=== PATIENT | male | born 1965 ===

== ENCOUNTER 2020-02-19 14:49 | Inpatient (IN) | payer MEDICARE, MEDICAID ==
[2020-02-19 21:24] VITALS: BP 135/62
[2020-02-19] MEDS ORDERED: Maalox 30 mL Cup PO PRN (21:27)
[2020-02-20] MEDS: Multivitamin Tab PO SCH (08:32)
--- NOTE | 2020-02-20 13:52 | Psychiatric Evaluation ---
DATE OF SERVICE: 02/19/2020 IDENTIFYING DATA: The patient is a 54-year-old male, currently homeless. Information obtained by directly interviewing the patient as well as reviewing the admission papers and they are reliable. JUSTIFICATION OF HOSPITALIZATION: The patient is admitted here on a 5150 as being gravely disabled and danger to others and self. CHIEF COMPLAINT: "I don't know what is happening. I am a minor. I have lots of money" but I don't have a place to stay." HISTORY OF PRESENT ILLNESS: This is the first psychiatric hospitalization to [facility] for this patient who is reported to have been brought over here on a 5150. During the evaluation, the patient has been very grandiose and going on a tangent and is not able to provide much of information. The patient is stating that he is a minor. He has lot of money, but at the same time does not have any place and the patient goes on talking about an home health care social worker and reality business and lawsuits. The patient is not making much sense at this time. The patient is noted to be extremely disheveled and the patient is not giving any information with regards to the prior treatments. PAST PSYCHIATRIC HISTORY: Details are not known. MEDICAL HISTORY: Denies any medical problems. SUBSTANCE ABUSE HISTORY: None. LEGAL PROBLEMS: None at this time. PHYSICAL OR SEXUAL ABUSE HISTORY: None. STRENGTH AND ASSETS: The patient is motivated. MENTAL STATUS EXAMINATION: The patient is a 54-year-old, looking his stated age, superficially cooperative, very disheveled. Speech is noted to be coherent and relevant. Insight and judgment are noted to be impaired. Impulse control is noted to be poor. Continues to be very paranoid and displaying grandiose delusions. The patient is getting easily irritable. The patient is alert and oriented x 3. The patient appears to be of average intelligence. Short and long-term memory are noted to be intact. The patient's behavior is a clear danger to others. The patient is gravely disabled and has no place to return to. DIAGNOSTIC IMPRESSION: AXIS I: Schizophrenia, chronic paranoid type; rule out schizoaffective disorder. AXIS II: None. AXIS III: As per Dr. Ontiveros. IMMEDIATE TREATMENT PLAN: The patient is going to be observed on the inpatient unit, provided with supportive psychotherapy. The patient is going to be closely monitored. Once stabilized, the patient is going to be discharged to self to be followed up on an outpatient basis. Initially, the patient is going to be started on the Zyprexa 5 mg twice a day and if the mood swings persist, the patient is going to be started with the Depakote. JOB# [id number]
[2020-02-20 15:45] LABS: CHOLESTEROL 184 mg/dL (<200); LDL CHOLESTEROL 134 mg/dL (0-129); TRIGLYCERIDES 160 mg/dL (30-150)
--- NOTE | 2020-02-20 15:51 | History & Physical ---
ADMIT DATE: 02/19/2020 CHIEF COMPLAINT: Agitation. HISTORY OF PRESENT ILLNESS: We have a 54-year-old male with schizophrenia, who is brought in for grandiose, tangential thinking. The patient denies any diabetes, heart problems or hypertension. PAST MEDICAL HISTORY: Significant for schizophrenia. PAST SURGICAL HISTORY: None. MEDICATIONS: List reviewed. ALLERGIES: None. SOCIAL HISTORY: Tobacco, IV drugs, ETOH negative. PHYSICAL EXAMINATION: VITAL SIGNS: Temperature is 98.4, pulse 69, respirations 20, blood pressure 125/77, satting 96% on room air. HEENT: Normocephalic, atraumatic head exam. NECK: Supple. CARDIOVASCULAR: Regular rate and rhythm. LUNGS: Decreased breath sounds. ABDOMEN: Soft, nontender. EXTREMITIES: No edema, cyanosis or clubbing. ASSESSMENT AND PLAN: 1. Hypertension. 2. Schizophrenia. The patient will get labs done, CBC, CMP. We will go from there. JOB# [id number]
[2020-02-20 17:01] LABS: WHITE BLOOD COUNT 7.6 K/uL (4.8-10.8)
[2020-02-20 17:02] LABS: BASOPHILS % (AUTO) 1.1 % (0.0-2.0); EOSINOPHILS % (AUTO) 3.4 % (0-4); HEMATOCRIT 43.5 % (36-54); HEMOGLOBIN 13.9 g/dL (14.0-18.0); LYMPHOCYTES % (AUTO) 34.7 % (20.5-51.5); MEAN CORPUSCULAR HEMOGLOBIN 29 pg (27-31); MEAN CORPUSCULAR HGB CONC 32 % (32-36); MEAN CORPUSCULAR VOLUME 90 fL (79.0-98.0); MONOCYTES % (AUTO) 8.8 % (1.7-9.3); PLATELET COUNT 152 K/uL (130-430); RED BLOOD COUNT 4.81 MIL/uL (4.2-6.2); RED CELL DISTRIBUTION WIDTH 14.2 % (9.0-15.0)
[2020-02-20 17:03] LABS: BASOPHILS # (AUTO) 0.1 K/uL (0.0-0.2); EOSINOPHILS # (AUTO) 0.3 K/uL (0.0-0.4); LYMPHOCYTES # (AUTO) 2.7 K/uL (1.0-5.5); MONOCYTES # (AUTO) 0.7 K/uL (0.0-1.0)
[2020-02-21 06:07] LABS: A1C 5.1 % (4.8-5.6)
[2020-02-21] MEDS: Multivitamin Tab PO SCH (08:29)
--- NOTE | 2020-02-21 11:55 | Consultation ---
DATE OF CONSULTATION: 02/21/2020 TYPE OF CONSULTATION: Psychology. HISTORY OF PRESENT ILLNESS: The patient is a 54-year-old male who is currently homeless. The following is by review of the medical record as well as by the patient's self-report. The patient is being admitted on a 5150 as being gravely disabled and a danger to others and self. Upon interview, the patient states that he does not know why he is being hospitalized and that he has lots of money and that he should not be in the hospital because he is a minor. The patient is 54 years old. The patient appears to be going off on a tangent and is unable to provide much information. The patient continued to state that he has a lot of money and that he just is not able to find a place to live. The patient also seemed to be verbalizing grandiose thoughts, i.e., that he is wealthy and in business for himself. The patient was unable to verbally contract for safety at the time of this clinical interview. PAST MEDICAL HISTORY: Please see history and physical by Dr. Ontiveros. PAST PSYCHIATRIC HISTORY: Records are unavailable. Details are unknown. SUBSTANCE ABUSE HISTORY: The patient denied any history of alcohol, tobacco or illicit drug use. This needs further evaluation. BRIEF PSYCHOSOCIAL HISTORY: The patient is currently homeless. The patient did not answer the questions about occupational or educational history that appeared to be realistic. 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 He states that he has multiple lawsuits that he is waiting to come to a conclusion. 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 The patient's thought process became markedly tangential, with grandiose thoughts and flight of ideas. The patient did not answer questions about history of physical or sexual abuse. He did not answer the question about confucianist affiliation. He stated he doesn't want to be placed in a Board and Care or Retirement facility. MENTAL STATUS EXAMINATION: The patient appears to be somewhat older than his stated age. The patient's attitude is superficially cooperative. The patient appears to be disheveled. Eye contact is intermittent and mostly avoidant. Speech is somewhat pressured. Mood is anxious. Affect is animated and mood congruent. Thought process is markedly tangential with flight of ideas. There seems to be some evidence of paranoid ideation and the patient is verbalizing grandiose delusions. The patient denied any suicidal ideation, plan or intention. The patient's behavior has been restless. Impulse control is poor. The patient is irritable at times. Sensorium is alert and oriented to self, place, and person. The patient's short and long-term memories seemed to be intact. The patient's intellectual function seems to be generally estimated at average based on vocabulary. The patient did not participate in the interpretation of proverbs. Insight is poor. Judgment is impaired. The patient has been assessed as gravely disabled with no place to return to. DIAGNOSTIC IMPRESSION: AXIS I: Schizophrenia, chronic paranoid type, rule out schizoaffective disorder. AXIS II: Deferred. AXIS III: Per Dr. Ontiveros. TREATMENT PLAN: The patient has been seen by Dr. Khan for psychiatric evaluation and for the management of the patient's psychotropic medications. We will provide supportive psychotherapy to include reality orientation, differentiation and integration. We will provide suicide prevention interventions as well as offering the opportunity for the patient to verbally contract for safety for no harm to others. We will provide de-escalation as well as limit setting and boundary awareness and definitions. We will provide motivational enhancement for the patient to become compliant and stay compliant with all aspects of his care and treatment. We will provide coping strategies for phase of life issues as well as for chronic severe mental illness. We will encourage the patient to accept placement versus being discharged to self and back to homelessness. This will be discussed with the assistant case manager and the attending psychiatrist. We will follow up in 2-3 days to continue the present treatment if the patient is able to demonstrate the capacity to benefit from psychology services and is also willing to participate in this type of treatment. Thank you, Dr. Khan for this consult and the opportunity to participate with you in this patient's care. JOB# [id number] ONDINA
--- NOTE | 2020-02-21 14:11 | Progress Notes ---
DATE: 02/21/2020 SUBJECTIVE: Staff was spoken to. The patient is interviewed. Mood is noted to be irritable. Affect is constricted. The patient is going on a tangent. Insight and judgment at this time are noted to be still impaired. Impulse control is noted to be limited. Coping skills are noted to be limited. The patient has been placed on the olanzapine 5 mg twice a day and the patient has been able to tolerate. The patient continues to go on a tangent and continues to be extremely psychotic at this time. PLAN: To closely monitor the patient. I encouraged the patient to verbalize the concerns rather than to act out. JOB# [id number]
--- NOTE | 2020-02-21 14:59 | Internal Medicine Prog Note ---
Internal Medicine Subjective - Subjective Service Date: 02/21/20 Patient seen and examined:: without staff Patient is:: awake Patient Complaints of:: congestion Per staff patient has:: no adverse event, no episodes of fall Internal Medicine Objective - Results Result Diagrams: 02/20/20 12:43 Recent Labs: Laboratory Last Values WBC 7.6 K/uL (4.8-10.8) 02/20/20 12:43 RBC 4.81 MIL/uL (4.2-6.2) 02/20/20 12:43 Hgb 13.9 g/dL (14.0-18.0) L 02/20/20 12:43 Hct 43.5 % (36-54) 02/20/20 12:43 MCV 90 fL (79.0-98.0) 02/20/20 12:43 MCH 29 pg (27-31) 02/20/20 12:43 MCHC 32 % (32-36) 02/20/20 12:43 RDW 14.2 % (9.0-15.0) 02/20/20 12:43 Plt Count 152 K/uL (130-430) 02/20/20 12:43 MPV 11.3 fl (7.4-10.4) H 02/20/20 12:43 Neut % (Auto) 52.0 % (40-70) 02/20/20 12:43 Lymph % (Auto) 34.7 % (20.5-51.5) 02/20/20 12:43 [place] % (Auto) 8.8 % (1.7-9.3) 02/20/20 12:43 Eos % (Auto) 3.4 % (0-4) 02/20/20 12:43 Baso % (Auto) 1.1 % (0.0-2.0) 02/20/20 12:43 Neut # (Auto) 4.0 K/uL (1.8-7.7) 02/20/20 12:43 Lymph # (Auto) 2.7 K/uL (1.0-5.5) 02/20/20 12:43 [place] # (Auto) 0.7 K/uL (0.0-1.0) 02/20/20 12:43 Eos # (Auto) 0.3 K/uL (0.0-0.4) 02/20/20 12:43 Baso # (Auto) 0.1 K/uL (0.0-0.2) 02/20/20 12:43 POC Glucose 115 MG/DL (70 - 105) H 02/19/20 20:24 Hemoglobin A1c 5.1 % (4.8-5.6) 02/20/20 12:49 Triglycerides 160 mg/dL (30-150) H 02/20/20 12:43 Cholesterol 184 mg/dL (<200) 02/20/20 12:43 LDL Cholesterol 134 mg/dL (0-129) H 02/20/20 12:43 HDL Cholesterol 37 mg/dL (>45) L 02/20/20 12:43 - Physical Exam Vitals and I&O: Vital Signs Temp 99.0 F 02/21/20 06:22 Pulse 70 02/21/20 06:22 Resp 16 02/21/20 08:00 BP 143/74 02/21/20 06:22 Pulse Ox 98 02/21/20 06:22 Intake & Output 02/20/20 02/21/20 02/21/20 18:59 06:59 18:59 Intake Total 660 Balance 660 Intake: Oral 660 Other: # Voids 2 # Bowel Movements 1 Stool Characteristics Soft Brown Soft Formed Formed Brown Brown Active Medications: Current Medications Acetaminophen (Tylenol) 650 mg PO Q4H PRN PRN Reason: Temperature Above 100 Stop: 04/19/20 21:26 Al Hydrox/Mg Hydrox/Simethicone (Maalox) 30 ml PO Q4HR PRN PRN Reason: GI DISTRESS Stop: 04/19/20 21:26 Chlorpromazine (Thorazine) 50 mg PO HS KOKI; Protocol Stop: 04/21/20 20:59 Diphenhydramine HCl (Benadryl) 25 mg PO QID PRN PRN Reason: Itching Stop: 04/20/20 08:49 Ibuprofen (Motrin) 400 mg PO Q4H PRN PRN Reason: Pain (Mild 1-3) Stop: 04/19/20 21:26 Lorazepam (Ativan) 0.5 mg PO Q4HR PRN; Protocol PRN Reason: Agitation Stop: 03/20/20 21:26 Multivitamins/Vitamin C (Theragran) 1 tab PO DAILY KOKI Stop: 04/20/20 08:59 Last Admin: 02/21/20 08:29 Dose: 1 tab Zolpidem Tartrate (Ambien) 5 mg PO HS PRN PRN Reason: Insomnia Stop: 04/19/20 21:26 General: weak HEENT: NC/AT, PERRLA Neck: Supple Lungs: CTAB Cardiovascular: RRR, Normal S1, Normal S2 Abdomen: soft, non-tender Extremities: clear Internal Medicine Assmt/Plan - Assessment Assessment: 1. HTN 2. Schizophrenia - Plan Plan: continue supportive care d/w r.n. reviewed medical records
[2020-02-22] MEDS: Multivitamin Tab PO SCH (08:17)
--- NOTE | 2020-02-22 14:32 | Internal Medicine Prog Note ---
Internal Medicine Subjective - Subjective Service Date: 02/22/20 Patient seen and examined:: without staff Patient is:: awake Patient Complaints of:: congestion Per staff patient has:: no adverse event, no episodes of fall Internal Medicine Objective - Results Result Diagrams: 02/20/20 12:43 Recent Labs: Laboratory Last Values WBC 7.6 K/uL (4.8-10.8) 02/20/20 12:43 RBC 4.81 MIL/uL (4.2-6.2) 02/20/20 12:43 Hgb 13.9 g/dL (14.0-18.0) L 02/20/20 12:43 Hct 43.5 % (36-54) 02/20/20 12:43 MCV 90 fL (79.0-98.0) 02/20/20 12:43 MCH 29 pg (27-31) 02/20/20 12:43 MCHC 32 % (32-36) 02/20/20 12:43 RDW 14.2 % (9.0-15.0) 02/20/20 12:43 Plt Count 152 K/uL (130-430) 02/20/20 12:43 MPV 11.3 fl (7.4-10.4) H 02/20/20 12:43 Neut % (Auto) 52.0 % (40-70) 02/20/20 12:43 Lymph % (Auto) 34.7 % (20.5-51.5) 02/20/20 12:43 [place] % (Auto) 8.8 % (1.7-9.3) 02/20/20 12:43 Eos % (Auto) 3.4 % (0-4) 02/20/20 12:43 Baso % (Auto) 1.1 % (0.0-2.0) 02/20/20 12:43 Neut # (Auto) 4.0 K/uL (1.8-7.7) 02/20/20 12:43 Lymph # (Auto) 2.7 K/uL (1.0-5.5) 02/20/20 12:43 [place] # (Auto) 0.7 K/uL (0.0-1.0) 02/20/20 12:43 Eos # (Auto) 0.3 K/uL (0.0-0.4) 02/20/20 12:43 Baso # (Auto) 0.1 K/uL (0.0-0.2) 02/20/20 12:43 POC Glucose 115 MG/DL (70 - 105) H 02/19/20 20:24 Hemoglobin A1c 5.1 % (4.8-5.6) 02/20/20 12:49 Triglycerides 160 mg/dL (30-150) H 02/20/20 12:43 Cholesterol 184 mg/dL (<200) 02/20/20 12:43 LDL Cholesterol 134 mg/dL (0-129) H 02/20/20 12:43 HDL Cholesterol 37 mg/dL (>45) L 02/20/20 12:43 - Physical Exam Vitals and I&O: Vital Signs Temp 97.8 F 02/22/20 06:13 Pulse 64 02/22/20 06:13 Resp 16 02/22/20 07:37 BP 141/76 02/22/20 06:13 Pulse Ox 94 02/22/20 06:13 Intake & Output 02/21/20 02/22/20 02/22/20 18:59 06:59 18:59 Intake Total 1000 240 Balance 1000 240 Intake: Oral 1000 240 Other: # Voids 4 2 # Bowel Movements 1 Stool Characteristics Soft Brown Soft Formed Formed Brown Brown Active Medications: Current Medications Acetaminophen (Tylenol) 650 mg PO Q4H PRN PRN Reason: Temperature Above 100 Stop: 04/19/20 21:26 Al Hydrox/Mg Hydrox/Simethicone (Maalox) 30 ml PO Q4HR PRN PRN Reason: GI DISTRESS Stop: 04/19/20 21:26 Chlorpromazine (Thorazine) 50 mg PO HS [facility]; Protocol Stop: 04/21/20 20:59 Last Admin: 02/21/20 21:14 Dose: Not Given Diphenhydramine HCl (Benadryl) 25 mg PO QID PRN PRN Reason: Itching Stop: 04/20/20 08:49 Ibuprofen (Motrin) 400 mg PO Q4H PRN PRN Reason: Pain (Mild 1-3) Stop: 04/19/20 21:26 Lorazepam (Ativan) 0.5 mg PO Q4HR PRN; Protocol PRN Reason: Agitation Stop: 03/20/20 21:26 Multivitamins/Vitamin C (Theragran) 1 tab PO DAILY KOKI Stop: 04/20/20 08:59 Last Admin: 02/22/20 08:17 Dose: 1 tab Zolpidem Tartrate (Ambien) 5 mg PO HS PRN PRN Reason: Insomnia Stop: 04/19/20 21:26 General: weak HEENT: NC/AT, PERRLA Neck: Supple Lungs: CTAB Cardiovascular: RRR, Normal S1, Normal S2 Abdomen: soft, non-tender Extremities: clear Neurological: no change Internal Medicine Assmt/Plan - Assessment Assessment: 1. HTN 2. Schizophrenia - Plan Plan: continue supportive care d/w r.n. reviewed medical records
--- NOTE | 2020-02-22 19:46 | Progress Notes ---
DATE: 02/22/2020 SUBJECTIVE: Staff was spoken to. The patient is interviewed. Mood is noted to be irritable. Affect is constricted. The patient is going on a tangent. The patient is not making much sense. Insight and judgment at this time are noted to be still impaired. The patient is stating that he has a place in [place] and he needs to get there. The patient is grandiose and at the same time psychotic. ASSESSMENT: The patient is still psychotic. PLAN: To continue the patient with supportive therapy. I encouraged the patient to verbalize the concerns rather than to act out. JOB# [id number]
[2020-02-23] MEDS: Multivitamin Tab PO SCH (08:37)
--- NOTE | 2020-02-23 14:49 | Internal Medicine Prog Note ---
Internal Medicine Subjective - Subjective Service Date: 02/23/20 Patient seen and examined:: without staff Patient is:: awake Patient Complaints of:: congestion Per staff patient has:: no adverse event, no episodes of fall Internal Medicine Objective - Results Result Diagrams: 02/20/20 12:43 Recent Labs: Laboratory Last Values WBC 7.6 K/uL (4.8-10.8) 02/20/20 12:43 RBC 4.81 MIL/uL (4.2-6.2) 02/20/20 12:43 Hgb 13.9 g/dL (14.0-18.0) L 02/20/20 12:43 Hct 43.5 % (36-54) 02/20/20 12:43 MCV 90 fL (79.0-98.0) 02/20/20 12:43 MCH 29 pg (27-31) 02/20/20 12:43 MCHC 32 % (32-36) 02/20/20 12:43 RDW 14.2 % (9.0-15.0) 02/20/20 12:43 Plt Count 152 K/uL (130-430) 02/20/20 12:43 MPV 11.3 fl (7.4-10.4) H 02/20/20 12:43 Neut % (Auto) 52.0 % (40-70) 02/20/20 12:43 Lymph % (Auto) 34.7 % (20.5-51.5) 02/20/20 12:43 [place] % (Auto) 8.8 % (1.7-9.3) 02/20/20 12:43 Eos % (Auto) 3.4 % (0-4) 02/20/20 12:43 Baso % (Auto) 1.1 % (0.0-2.0) 02/20/20 12:43 Neut # (Auto) 4.0 K/uL (1.8-7.7) 02/20/20 12:43 Lymph # (Auto) 2.7 K/uL (1.0-5.5) 02/20/20 12:43 [place] # (Auto) 0.7 K/uL (0.0-1.0) 02/20/20 12:43 Eos # (Auto) 0.3 K/uL (0.0-0.4) 02/20/20 12:43 Baso # (Auto) 0.1 K/uL (0.0-0.2) 02/20/20 12:43 POC Glucose 115 MG/DL (70 - 105) H 02/19/20 20:24 Hemoglobin A1c 5.1 % (4.8-5.6) 02/20/20 12:49 Triglycerides 160 mg/dL (30-150) H 02/20/20 12:43 Cholesterol 184 mg/dL (<200) 02/20/20 12:43 LDL Cholesterol 134 mg/dL (0-129) H 02/20/20 12:43 HDL Cholesterol 37 mg/dL (>45) L 02/20/20 12:43 Coronavirus (PCR) NOT DETECTED (NOT DETECTD) 02/20/20 05:00 - Physical Exam Vitals and I&O: Vital Signs Temp 97.9 F 02/23/20 14:36 Pulse 77 02/23/20 14:36 Resp 20 02/23/20 14:36 BP 129/69 02/23/20 14:36 Pulse Ox 97 02/23/20 14:36 Intake & Output 02/22/20 02/23/20 02/23/20 18:59 06:59 18:59 Intake Total 1400 Balance 1400 Intake: Oral 1400 Other: # Voids 4 3 # Bowel Movements 1 0 Stool Characteristics Soft Formed Brown Active Medications: Current Medications Acetaminophen (Tylenol) 650 mg PO Q4H PRN PRN Reason: Temperature Above 100 Stop: 04/19/20 21:26 Al Hydrox/Mg Hydrox/Simethicone (Maalox) 30 ml PO Q4HR PRN PRN Reason: GI DISTRESS Stop: 04/19/20 21:26 Chlorpromazine (Thorazine) 50 mg PO HS [facility]; Protocol Stop: 04/21/20 20:59 Last Admin: 02/22/20 21:03 Dose: 50 mg Diphenhydramine HCl (Benadryl) 25 mg PO QID PRN PRN Reason: Itching Stop: 04/20/20 08:49 Ibuprofen (Motrin) 400 mg PO Q4H PRN PRN Reason: Pain (Mild 1-3) Stop: 04/19/20 21:26 Lorazepam (Ativan) 0.5 mg PO Q4HR PRN; Protocol PRN Reason: Agitation Stop: 03/20/20 21:26 Multivitamins/Vitamin C (Theragran) 1 tab PO DAILY KOKI Stop: 04/20/20 08:59 Last Admin: 02/23/20 08:37 Dose: 1 tab Zolpidem Tartrate (Ambien) 5 mg PO HS PRN PRN Reason: Insomnia Stop: 04/19/20 21:26 Last Admin: 02/22/20 21:03 Dose: 5 mg General: weak HEENT: NC/AT, PERRLA Neck: Supple Lungs: CTAB Cardiovascular: RRR, Normal S1, Normal S2 Abdomen: soft, non-tender Extremities: clear Neurological: no change Internal Medicine Assmt/Plan - Assessment Assessment: 1. HTN 2. Schizophrenia - Plan Plan: continue supportive care d/w r.n. reviewed medical records
--- NOTE | 2020-02-23 20:16 | Progress Notes ---
DATE: 02/23/2020 SUBJECTIVE: Staff was spoken to. The patient is interviewed. Mood is noted to be irritable. Affect is constricted. Insight and judgment are noted to be still impaired. Impulse control is noted to be limited. Continues to be paranoid and going on a tangent. Sleep is noted to be poor. Appetite is noted to be improving. No side effects to the medications are noted. The patient does not want to take anything else except for Thorazine. ASSESSMENT: The patient is still grossly psychotic. PLAN: To continue the patient with the current medications and followup. JOB# [id number]
[2020-02-24] MEDS: Multivitamin Tab PO SCH (08:39)
--- NOTE | 2020-02-24 12:41 | Progress Notes ---
DATE: 02/24/2020 SUBJECTIVE: Staff was spoken to. The patient is interviewed. Mood is noted to be irritable. Affect is constricted. Insight and judgment are noted to be still impaired. Impulse control is noted to be poor. Coping skills are noted to be poor. The patient continues to be responding to internal stimuli. The patient has been given the option of being on a low dose of a mood stabilizer, but the patient has been refusing. The patient continues to be psychotic. No side effects to the Thorazine are noted and hence it is decided to increase the dose of the Thorazine to 50 mg b.i.d. and follow the patient with the supportive therapy. . The patient has no place to return to at this time. Personal hygiene continues to be extremely poor. ASSESSMENT: The patient is still grossly psychotic and gravely disabled. PLAN: To continue the patient with the supportive therapy and followup. JOB# [id number]
--- NOTE | 2020-02-24 18:29 | Internal Medicine Prog Note ---
Internal Medicine Subjective - Subjective Service Date: 02/24/20 Patient seen and examined:: without staff Patient is:: awake Patient Complaints of:: congestion Per staff patient has:: no adverse event, no episodes of fall Internal Medicine Objective - Results Result Diagrams: 02/20/20 12:43 Recent Labs: Laboratory Last Values WBC 7.6 K/uL (4.8-10.8) 02/20/20 12:43 RBC 4.81 MIL/uL (4.2-6.2) 02/20/20 12:43 Hgb 13.9 g/dL (14.0-18.0) L 02/20/20 12:43 Hct 43.5 % (36-54) 02/20/20 12:43 MCV 90 fL (79.0-98.0) 02/20/20 12:43 MCH 29 pg (27-31) 02/20/20 12:43 MCHC 32 % (32-36) 02/20/20 12:43 RDW 14.2 % (9.0-15.0) 02/20/20 12:43 Plt Count 152 K/uL (130-430) 02/20/20 12:43 MPV 11.3 fl (7.4-10.4) H 02/20/20 12:43 Neut % (Auto) 52.0 % (40-70) 02/20/20 12:43 Lymph % (Auto) 34.7 % (20.5-51.5) 02/20/20 12:43 [place] % (Auto) 8.8 % (1.7-9.3) 02/20/20 12:43 Eos % (Auto) 3.4 % (0-4) 02/20/20 12:43 Baso % (Auto) 1.1 % (0.0-2.0) 02/20/20 12:43 Neut # (Auto) 4.0 K/uL (1.8-7.7) 02/20/20 12:43 Lymph # (Auto) 2.7 K/uL (1.0-5.5) 02/20/20 12:43 [place] # (Auto) 0.7 K/uL (0.0-1.0) 02/20/20 12:43 Eos # (Auto) 0.3 K/uL (0.0-0.4) 02/20/20 12:43 Baso # (Auto) 0.1 K/uL (0.0-0.2) 02/20/20 12:43 POC Glucose 115 MG/DL (70 - 105) H 02/19/20 20:24 Hemoglobin A1c 5.1 % (4.8-5.6) 02/20/20 12:49 Triglycerides 160 mg/dL (30-150) H 02/20/20 12:43 Cholesterol 184 mg/dL (<200) 02/20/20 12:43 LDL Cholesterol 134 mg/dL (0-129) H 02/20/20 12:43 HDL Cholesterol 37 mg/dL (>45) L 02/20/20 12:43 Coronavirus (PCR) NOT DETECTED (NOT DETECTD) 02/20/20 05:00 - Physical Exam Vitals and I&O: Vital Signs Temp 98.8 F 02/24/20 14:39 Pulse 79 02/24/20 14:39 Resp 20 02/24/20 14:39 BP 128/70 02/24/20 14:39 Pulse Ox 97 02/24/20 14:39 Intake & Output 02/23/20 02/24/20 02/24/20 18:59 06:59 18:59 Intake Total 5784 910 7219 Balance 5603 955 9887 Intake: Oral 9168 617 6813 Other: # Voids 4 3 4 # Bowel Movements 1 0 2 Active Medications: Current Medications Acetaminophen (Tylenol) 650 mg PO Q4H PRN PRN Reason: Temperature Above 100 Stop: 04/19/20 21:26 Al Hydrox/Mg Hydrox/Simethicone (Maalox) 30 ml PO Q4HR PRN PRN Reason: GI DISTRESS Stop: 04/19/20 21:26 Chlorpromazine (Thorazine) 50 mg PO BID [facility]; Protocol Stop: 04/24/20 08:59 Last Admin: 02/24/20 16:31 Dose: 50 mg Diphenhydramine HCl (Benadryl) 25 mg PO QID PRN PRN Reason: Itching Stop: 04/20/20 08:49 Ibuprofen (Motrin) 400 mg PO Q4H PRN PRN Reason: Pain (Mild 1-3) Stop: 04/19/20 21:26 Lorazepam (Ativan) 0.5 mg PO Q4HR PRN; Protocol PRN Reason: Agitation Stop: 03/20/20 21:26 Multivitamins/Vitamin C (Theragran) 1 tab PO DAILY KOKI Stop: 04/20/20 08:59 Last Admin: 02/24/20 08:39 Dose: 1 tab Zolpidem Tartrate (Ambien) 5 mg PO HS PRN PRN Reason: Insomnia Stop: 04/19/20 21:26 Last Admin: 02/22/20 21:03 Dose: 5 mg General: weak HEENT: NC/AT, PERRLA Neck: Supple Lungs: CTAB Cardiovascular: RRR, Normal S1, Normal S2 Abdomen: soft, non-tender Extremities: clear Neurological: no change Internal Medicine Assmt/Plan - Assessment Assessment: 1. HTN 2. Schizophrenia - Plan Plan: continue supportive care d/w r.n. reviewed medical records
[2020-02-25] MEDS: Multivitamin Tab PO SCH (10:01)
[2020-02-25 13:48] LABS: BILIRUBIN,TOTAL 0.2 mg/dL (0.0-1.0); CALCIUM SERUM 9.2 mg/dL (8.4-10.2); CREATININE - SERUM 1.03 mg/dL (0.70-1.30)
--- NOTE | 2020-02-25 13:54 | Internal Medicine Prog Note ---
Internal Medicine Subjective - Subjective Service Date: 02/25/20 Patient seen and examined:: without staff Patient is:: awake Patient Complaints of:: congestion Per staff patient has:: no adverse event, no episodes of fall Internal Medicine Objective - Results Result Diagrams: 02/20/20 12:43 02/25/20 09:25 Recent Labs: Laboratory Last Values WBC 7.6 K/uL (4.8-10.8) 02/20/20 12:43 RBC 4.81 MIL/uL (4.2-6.2) 02/20/20 12:43 Hgb 13.9 g/dL (14.0-18.0) L 02/20/20 12:43 Hct 43.5 % (36-54) 02/20/20 12:43 MCV 90 fL (79.0-98.0) 02/20/20 12:43 MCH 29 pg (27-31) 02/20/20 12:43 MCHC 32 % (32-36) 02/20/20 12:43 RDW 14.2 % (9.0-15.0) 02/20/20 12:43 Plt Count 152 K/uL (130-430) 02/20/20 12:43 MPV 11.3 fl (7.4-10.4) H 02/20/20 12:43 Neut % (Auto) 52.0 % (40-70) 02/20/20 12:43 Lymph % (Auto) 34.7 % (20.5-51.5) 02/20/20 12:43 [place] % (Auto) 8.8 % (1.7-9.3) 02/20/20 12:43 Eos % (Auto) 3.4 % (0-4) 02/20/20 12:43 Baso % (Auto) 1.1 % (0.0-2.0) 02/20/20 12:43 Neut # (Auto) 4.0 K/uL (1.8-7.7) 02/20/20 12:43 Lymph # (Auto) 2.7 K/uL (1.0-5.5) 02/20/20 12:43 [place] # (Auto) 0.7 K/uL (0.0-1.0) 02/20/20 12:43 Eos # (Auto) 0.3 K/uL (0.0-0.4) 02/20/20 12:43 Baso # (Auto) 0.1 K/uL (0.0-0.2) 02/20/20 12:43 Sodium 139 mmol/L (136-145) 02/25/20 09:25 Potassium 4.0 mmol/L (3.5-5.1) 02/25/20 09:25 Chloride 107 mmol/L (98-107) 02/25/20 09:25 Carbon Dioxide 30 mmol/L (23-29) H 02/25/20 09:25 Anion Gap 6 (5-15) 02/25/20 09:25 BUN 18 mg/dL (8-21) 02/25/20 09:25 Creatinine 1.03 mg/dL (0.70-1.30) 02/25/20 09:25 Glucose 95 mg/dL (70-99) 02/25/20 09:25 POC Glucose 115 MG/DL (70 - 105) H 02/19/20 20:24 Hemoglobin A1c 5.1 % (4.8-5.6) 02/20/20 12:49 Calcium 9.2 mg/dL (8.4-10.2) 02/25/20 09:25 Total Bilirubin 0.2 mg/dL (0.0-1.0) 02/25/20 09:25 AST 26 U/L (10-37) 02/25/20 09:25 ALT 46 U/L (12-78) 02/25/20 09:25 Alkaline Phosphatase 100 U/L (46-116) 02/25/20 09:25 Total Protein 6.0 g/dL (6.4-8.3) L 02/25/20 09:25 Albumin 3.1 g/dL (3.4-5.0) L 02/25/20 09:25 Triglycerides 160 mg/dL (30-150) H 02/20/20 12:43 Cholesterol 184 mg/dL (<200) 02/20/20 12:43 LDL Cholesterol 134 mg/dL (0-129) H 02/20/20 12:43 HDL Cholesterol 37 mg/dL (>45) L 02/20/20 12:43 Coronavirus (PCR) NOT DETECTED (NOT DETECTD) 02/20/20 05:00 - Physical Exam Vitals and I&O: Vital Signs Temp 97.8 F 02/25/20 05:29 Pulse 73 02/25/20 05:29 Resp 16 02/25/20 08:00 BP 122/67 02/25/20 05:29 Pulse Ox 96 02/25/20 05:29 Intake & Output 02/24/20 02/25/20 02/25/20 18:59 06:59 18:59 Intake Total 1400 480 Balance 1400 480 Intake: Oral 1400 480 Other: # Voids 4 3 # Bowel Movements 2 0 Stool Characteristics Formed Active Medications: Current Medications Acetaminophen (Tylenol) 650 mg PO Q4H PRN PRN Reason: Temperature Above 100 Stop: 04/19/20 21:26 Al Hydrox/Mg Hydrox/Simethicone (Maalox) 30 ml PO Q4HR PRN PRN Reason: GI DISTRESS Stop: 04/19/20 21:26 Chlorpromazine (Thorazine) 50 mg PO BID KOKI; Protocol Stop: 04/24/20 08:59 Last Admin: 02/25/20 10:01 Dose: 50 mg Diphenhydramine HCl (Benadryl) 25 mg PO QID PRN PRN Reason: Itching Stop: 04/20/20 08:49 Ibuprofen (Motrin) 400 mg PO Q4H PRN PRN Reason: Pain (Mild 1-3) Stop: 04/19/20 21:26 Lorazepam (Ativan) 0.5 mg PO Q4HR PRN; Protocol PRN Reason: Agitation Stop: 03/20/20 21:26 Multivitamins/Vitamin C (Theragran) 1 tab PO DAILY KOKI Stop: 04/20/20 08:59 Last Admin: 02/25/20 10:01 Dose: 1 tab Zolpidem Tartrate (Ambien) 5 mg PO HS PRN PRN Reason: Insomnia Stop: 04/19/20 21:26 Last Admin: 02/22/20 21:03 Dose: 5 mg General: weak HEENT: NC/AT, PERRLA Neck: Supple Lungs: CTAB Cardiovascular: RRR, Normal S1, Normal S2 Abdomen: soft, non-tender Extremities: clear Neurological: no change Internal Medicine Assmt/Plan - Assessment Assessment: 1. HTN 2. Schizophrenia - Plan Plan: continue supportive care d/w r.n. reviewed medical records
--- NOTE | 2020-02-25 15:25 | Progress Notes ---
DATE: 02/23/2020 PSYCHOLOGY PROGRESS NOTE SUBJECTIVE: The patient is seen and is interviewed. Case was discussed with staff. The patient is standing outside his room and appears to be upset. The patient appears also to be responding to internal stimuli. The patient has been refusing medications according to the staff. The patient continues to be psychotic. OBJECTIVE: Mood is irritable. Affect is constricted. Thought process shows to be tangential with flight of ideas. The patient denied any suicidal ideation, plan or intention. The patient has been refusing medications according to the staff. The patient appears to be floridly psychotic and gravely disabled. The patient's behavior has been difficult to redirect on the unit. ASSESSMENT: The patient is grossly psychotic and gravely disabled. Staff reports the patient has become more withdrawn. PLAN: We provided reality orientation, differentiation and integration. We provided remotivation for the patient to become compliant and stay compliant with all aspects of his care and treatment. We encouraged the patient to verbally contract for safety. We encouraged the patient to verbalize his concerns versus acting out. We will follow up in 2-3 days to continue the present treatment if the patient demonstrates the capacity to benefit from this type of treatment and also is willing to participate. JOB# [id number] ONDINA
--- NOTE | 2020-02-26 03:22 | Progress Notes ---
DATE: 02/25/2020 SUBJECTIVE: Staff was spoken to. The patient is interviewed. Mood is noted to be irritable. Affect is constricted. Insight and judgment are noted to be still impaired. Impulse control is noted to be limited. Coping skills are noted to be limited. The patient has been having difficult time to cope with the stress. The patient is stating that he does not want to take any other medication except Thorazine. The patient has no insight into his illness. The patient's sleep is noted to be improving. Appetite is also noted to be improving. However, the patient continues to be psychotic and he is going on a tangent. PLAN: To continue the patient with the supportive therapy, encouraged the patient to verbalize the concerns rather than to act out. JOB# [id number]
[2020-02-26] MEDS: Multivitamin Tab PO SCH (08:26)
--- NOTE | 2020-02-26 13:39 | Internal Medicine Prog Note ---
Internal Medicine Subjective - Subjective Service Date: 02/26/20 Patient seen and examined:: without staff Patient is:: awake Patient Complaints of:: congestion Per staff patient has:: no adverse event, no episodes of fall Internal Medicine Objective - Results Result Diagrams: 02/20/20 12:43 02/25/20 09:25 Recent Labs: Laboratory Last Values WBC 7.6 K/uL (4.8-10.8) 02/20/20 12:43 RBC 4.81 MIL/uL (4.2-6.2) 02/20/20 12:43 Hgb 13.9 g/dL (14.0-18.0) L 02/20/20 12:43 Hct 43.5 % (36-54) 02/20/20 12:43 MCV 90 fL (79.0-98.0) 02/20/20 12:43 MCH 29 pg (27-31) 02/20/20 12:43 MCHC 32 % (32-36) 02/20/20 12:43 RDW 14.2 % (9.0-15.0) 02/20/20 12:43 Plt Count 152 K/uL (130-430) 02/20/20 12:43 MPV 11.3 fl (7.4-10.4) H 02/20/20 12:43 Neut % (Auto) 52.0 % (40-70) 02/20/20 12:43 Lymph % (Auto) 34.7 % (20.5-51.5) 02/20/20 12:43 [place] % (Auto) 8.8 % (1.7-9.3) 02/20/20 12:43 Eos % (Auto) 3.4 % (0-4) 02/20/20 12:43 Baso % (Auto) 1.1 % (0.0-2.0) 02/20/20 12:43 Neut # (Auto) 4.0 K/uL (1.8-7.7) 02/20/20 12:43 Lymph # (Auto) 2.7 K/uL (1.0-5.5) 02/20/20 12:43 [place] # (Auto) 0.7 K/uL (0.0-1.0) 02/20/20 12:43 Eos # (Auto) 0.3 K/uL (0.0-0.4) 02/20/20 12:43 Baso # (Auto) 0.1 K/uL (0.0-0.2) 02/20/20 12:43 Sodium 139 mmol/L (136-145) 02/25/20 09:25 Potassium 4.0 mmol/L (3.5-5.1) 02/25/20 09:25 Chloride 107 mmol/L (98-107) 02/25/20 09:25 Carbon Dioxide 30 mmol/L (23-29) H 02/25/20 09:25 Anion Gap 6 (5-15) 02/25/20 09:25 BUN 18 mg/dL (8-21) 02/25/20 09:25 Creatinine 1.03 mg/dL (0.70-1.30) 02/25/20 09:25 Glucose 95 mg/dL (70-99) 02/25/20 09:25 POC Glucose 115 MG/DL (70 - 105) H 02/19/20 20:24 Hemoglobin A1c 5.1 % (4.8-5.6) 02/20/20 12:49 Calcium 9.2 mg/dL (8.4-10.2) 02/25/20 09:25 Total Bilirubin 0.2 mg/dL (0.0-1.0) 02/25/20 09:25 AST 26 U/L (10-37) 02/25/20 09:25 ALT 46 U/L (12-78) 02/25/20 09:25 Alkaline Phosphatase 100 U/L (46-116) 02/25/20 09:25 Total Protein 6.0 g/dL (6.4-8.3) L 02/25/20 09:25 Albumin 3.1 g/dL (3.4-5.0) L 02/25/20 09:25 Triglycerides 160 mg/dL (30-150) H 02/20/20 12:43 Cholesterol 184 mg/dL (<200) 02/20/20 12:43 LDL Cholesterol 134 mg/dL (0-129) H 02/20/20 12:43 HDL Cholesterol 37 mg/dL (>45) L 02/20/20 12:43 Coronavirus (PCR) NOT DETECTED (NOT DETECTD) 02/20/20 05:00 - Physical Exam Vitals and I&O: Vital Signs Temp 97.7 F 02/26/20 06:05 Pulse 59 02/26/20 06:05 Resp 16 02/26/20 07:37 BP 122/70 02/26/20 06:05 Pulse Ox 98 02/26/20 06:05 Intake & Output 02/25/20 02/26/20 02/26/20 18:59 06:59 18:59 Intake Total 1200 120 Balance 1200 120 Intake: Oral 1200 120 Other: # Voids 4 3 # Bowel Movements 1 Stool Characteristics Formed Formed Active Medications: Current Medications Acetaminophen (Tylenol) 650 mg PO Q4H PRN PRN Reason: Temperature Above 100 Stop: 04/19/20 21:26 Al Hydrox/Mg Hydrox/Simethicone (Maalox) 30 ml PO Q4HR PRN PRN Reason: GI DISTRESS Stop: 04/19/20 21:26 Chlorpromazine (Thorazine) 100 mg PO BID KOKI; Protocol Stop: 04/26/20 08:59 Diphenhydramine HCl (Benadryl) 25 mg PO QID PRN PRN Reason: Itching Stop: 04/20/20 08:49 Ibuprofen (Motrin) 400 mg PO Q4H PRN PRN Reason: Pain (Mild 1-3) Stop: 04/19/20 21:26 Lorazepam (Ativan) 0.5 mg PO Q4HR PRN; Protocol PRN Reason: Agitation Stop: 03/20/20 21:26 Multivitamins/Vitamin C (Theragran) 1 tab PO DAILY KOKI Stop: 04/20/20 08:59 Last Admin: 02/26/20 08:26 Dose: 1 tab Zolpidem Tartrate (Ambien) 5 mg PO HS PRN PRN Reason: Insomnia Stop: 04/19/20 21:26 Last Admin: 02/22/20 21:03 Dose: 5 mg General: weak HEENT: NC/AT, PERRLA Neck: Supple Lungs: CTAB Cardiovascular: RRR, Normal S1, Normal S2 Abdomen: soft, non-tender Extremities: clear Neurological: no change Internal Medicine Assmt/Plan - Assessment Assessment: 1. HTN 2. Schizophrenia - Plan Plan: continue supportive care d/w r.n. reviewed medical records Nutritional Asmnt/Malnutr-PDOC - Dietary Evaluation Malnutrition Findings (Please click <Entered> for more info): Nutritional Asmnt/Malnutrition Start: 02/25/20 16: 03 Text: Status: Active Freq: Protocol: Document 02/25/20 16:03 ETHAN (Rec: 02/25/20 16:09 ETHAN [id number]) Nutritional Asmnt/Malnutrition Patient General Information Nutritional Screening Low Risk Diagnosis Danger to Self, Grave Disability Pertinent Medical Hx/Surgical Hx Schizophrenia, HTN Subjective Information Pt is a 54-year-old male admitted on 02/18 d/t grandiose , tangential thinking, gravely disabled and danger to others and self. Pt is eating an estimated 100% of meals since admit date (x5 days) Per Meal/ Nutrition Activity Record. Dietary is currently providing an estimated 2400 kcals and 120 gm Pro to meet 100% kcal and 100+% Pro needs. Pt has buttocks skin breakdown, open wound 1 cm. Providing Enzo BID to support skin integrity. Visited pt, stated food has been fine, he just likes to eat a lot. Anthropometrics HT: 61 WT: 238 LB (108.18 kg) ABW: 198 LB (89.77 kg) BMI: 31.40 (Obese, class I) GI/ Skin Integrity GI: WNL, Soft, Non-tender, Round BM: 02/23 x2 I/O: 1880/Not Noted Skin: Rt Buttocks Decubitus with pink, skin breakdown Minesh: 19 Diet Order: Regular Estimated Energy Needs: (Obese , ABW, wound) 6035-2728 kcals (25-28 kcals/ kg) 90-108g Pro (1.0-1.2g/kg) 3229-1720 ml (25-28 ml/kg) Current Diet Order/ Nutrition Support Regular Patient / S.O Can Pertinent Medications Maalox (PRN), Theragran Pertinent Labs 02/24: Total Pro 6.0, Albumin 3 .1 02/19: Triglycerides 160, LDL 134, HDL 37 02/18: POC Glucose 115 Nutritional Hx/Data Height 1.85 m Height (Calculated Centimeters) 185.4 Current Weight (lbs) 107.955 kg Weight (Calculated Kilograms) 108.0 Weight (Calculated Grams) 818591.0 [place] Body Weight 184 LB (83.64 kg) % [place] Body Weight 129 Body Mass Index (BMI) 31.4 Weight Status Obese GI Symptoms Last BM 02/23 x2 Skin Integrity/Comment: Skin: Rt Buttocks Decubitus with pink, skin breakdown Minesh: 19 Pt has buttocks skin breakdown , open wound 1 cm. Providing Enzo BID to support skin integrity. Visited pt, stated food has been fine, he just likes to eat a lot. Current %PO Good (75-100%) Estimated Nutritional Goals BEE in Kcals: Adj wt of IBW Calories/Kcals/Kg 25-28 Kcals Calculated 0930-8757 Protein: Adj wt of IBW Protein g/k.0-1.2 Protein Calculated 90-108 Fluid: ml 9006-6836 ml (25-28 ml/kg) Nutritional Problem 1. Problem Problem Increased mineral/vitamin needs Etiology related to wound healing Signs/Symptoms: aeb buttocks skin breakdown, open wound 1 cm. Malnutrition Related to Morbid Obesity Malnutrition related to morbid obesity No Intervention/Recommendation Comments 1.Continue Regular diet as tolerated. 2.Add Enzo BID (completed). Expected Outcomes/Goals Expected Outcomes/Goals 1.PO intake to continue to meet >75% of estimated nutritional needs. 2.Monitor PO intake, wt, nutrition related lab, and skin integrity to trend WNL. 3.F/U as low risk in 7-10 days , 03/03-03/06.
--- NOTE | 2020-02-26 16:58 | Progress Notes ---
DATE: 02/26/2020 SUBJECTIVE: Staff was spoken to. The patient is interviewed. Mood is noted to be irritable. Affect is constricted. Insight and judgement noted to be Still impaired. Impulse control is noted to be limited. Coping skills are noted to be limited. The patient has been having difficult time to cope with the stress. The patient is going on a tangent and is not making much sense. The patient is getting easily irritable and angry. The patient has been stating that this is not the Thorazine that he is receiving and he wants something different. The patient has been educated on the medication and since the patient is grossly psychotic, it is decided to increase the dose on the Thorazine to 100 mg twice a day and follow the patient up. JOB# [id number]
[2020-02-26] MEDS ORDERED: Menthol/Zinc Oxide Oint 113gm Tube TP PRN (18:48)
--- NOTE | 2020-02-26 19:29 | Progress Notes ---
DATE: 02/25/2020 PSYCHOLOGY PROGRESS NOTE SUBJECTIVE: The patient is seen and is interviewed. Case is discussed with staff. The patient presents as easily irritated. Staff reports the patient is having a difficult time coping and that he is requesting to speak with the psychiatrist regarding his medication. The patient is not making much sense. The patient was mostly dismissive and at times nonresponsive. OBJECTIVE: Mood is irritable. Affect is constricted. Thought process shows to be markedly tangential and cognitively unredirectable. The patient is highly distracted due to psychotic process. The patient is responding to internal stimuli. The patient did not answer the question about experiencing suicidal ideation or homicidal ideation. Staff reports the patient has had multiple anger episodes and is difficult to contain. ASSESSMENT: The patient's impulsivity and psychosis persist. PLAN: We provided de-escalation and limit setting. We provided remotivation for the patient to become compliant and stay compliant with all aspects of his care and treatment. We provided coping strategies for chronic severe mental illness. We encouraged the patient to verbalize his concerns. We provided stress management to assist the patient in increasing his frustration tolerance. We encouraged the patient to follow through with staff direction. We will follow up in 2-3 days to continue the present treatment if the patient is able to demonstrate the capacity to benefit and the willingness to participate in this type of treatment. JOB# [id number] ONDINA
[2020-02-27] MEDS: Multivitamin Tab PO SCH (08:34)
--- NOTE | 2020-02-27 08:36 | Progress Notes ---
DATE: 02/27/2020 PSYCHIATRIC PROGRESS NOTE SUBJECTIVE: Staff was spoken to. The patient is interviewed. Mood is noted to be irritable. Affect is constricted. Insight and judgment at this time are noted to be still impaired. Impulse control is noted to be limited. The patient is testing the limits. The patient is reluctant to take the medications, stating that the medications that we are giving are not the right medication. The patient continues to be acutely psychotic and has no insight into his illness. The patient's sleep is noted to be fair. Appetite is noted to be improving. Personal hygiene is noted to be extremely poor. ASSESSMENT: The patient is still grossly psychotic. PLAN: To continue the patient with the current medications and I encouraged the patient to verbalize the concerns rather than to act out. JOB# [id number]
[2020-02-27] MEDS: Venelex 60gm Tube TP SCH (09:23)
[2020-02-28] MEDS: Venelex 60gm Tube TP SCH (08:33)
[2020-02-28] MEDS: Multivitamin Tab PO SCH (08:34)
--- NOTE | 2020-02-29 00:36 | Progress Notes ---
DATE: 02/28/2020 SUBJECTIVE: Staff was spoken to. The patient is interviewed. Mood is noted to be irritable. Affect is constricted. The patient is going on a tangent, does not make much sense. The patient is talking nonsensically. Coping skills at this time are noted to be very poor. No side effects to the medications are noted. ASSESSMENT: The patient is still grossly psychotic and impulsive. PLAN: To continue the patient with the supportive therapy, encouraged the patient to verbalize the concerns rather than to act out. JOB# [id number]
[2020-02-29] MEDS: Multivitamin Tab PO SCH (08:58)
[2020-02-29] MEDS: Venelex 60gm Tube TP SCH (08:58)
--- NOTE | 2020-02-29 11:23 | Progress Notes ---
DATE: 02/28/2020 PSYCHOLOGY PROGRESS NOTE SUBJECTIVE: The patient is seen and is interviewed. Case is discussed with staff. The patient continues to present as argumentative and easily irritated. The patient is not making much sense and is going off on a tangent with flight of ideas and loose associations. The patient is not making much sense at the time of this clinical followup. The patient has extremely poor insight into his illness. OBJECTIVE: Mood is irritable. Affect is constricted. Thought process shows to be markedly tangential with flight of ideas. There is some evidence of paranoid ideation. The patient is not making much sense and appears to be responding to internal stimuli. Staff reports the patient refuses medications at times. The patient denied any suicidal ideation. ASSESSMENT: The patient's psychosis and impulsivity persist. PLAN: We provided de-escalation and limit setting. We encouraged the patient to verbalize his concerns versus acting out verbally and behaviorally. We provided remotivation for the patient to become compliant and stay compliant with all aspects of his care and treatment and to follow through with staff direction. We will follow up in 2-3 days to continue the present treatment if the patient remains on the unit and is willing to participate in and is able to demonstrate the capacity to benefit from psychology services. JOB# [id number] ONDINA
--- NOTE | 2020-03-01 03:00 | Progress Notes ---
DATE: 02/29/2020 PSYCHIATRIC PROGRESS NOTE SUBJECTIVE: Staff was spoken to. The patient is interviewed. Mood is noted to be irritable. Affect is constricted. Insight and judgment are noted to be still impaired. Impulse control is noted to be limited. The patient has paranoia, but denies any command hallucinations today. The patient needs to be redirected. ASSESSMENT: The patient is still paranoid. PLAN: To continue the patient with supportive therapy. I encouraged the patient to verbalize the concerns rather than to act out. JOB# [id number]
[2020-03-01] MEDS: Venelex 60gm Tube TP SCH (08:45)
[2020-03-01] MEDS: Multivitamin Tab PO SCH (08:45)
--- NOTE | 2020-03-01 14:36 | Internal Medicine Prog Note ---
Internal Medicine Subjective - Subjective Service Date: 03/01/20 Patient seen and examined:: without staff Patient is:: awake Patient Complaints of:: congestion Per staff patient has:: no adverse event, no episodes of fall Internal Medicine Objective - Results Result Diagrams: 02/20/20 12:43 02/25/20 09:25 Recent Labs: Laboratory Last Values WBC 7.6 K/uL (4.8-10.8) 02/20/20 12:43 RBC 4.81 MIL/uL (4.2-6.2) 02/20/20 12:43 Hgb 13.9 g/dL (14.0-18.0) L 02/20/20 12:43 Hct 43.5 % (36-54) 02/20/20 12:43 MCV 90 fL (79.0-98.0) 02/20/20 12:43 MCH 29 pg (27-31) 02/20/20 12:43 MCHC 32 % (32-36) 02/20/20 12:43 RDW 14.2 % (9.0-15.0) 02/20/20 12:43 Plt Count 152 K/uL (130-430) 02/20/20 12:43 MPV 11.3 fl (7.4-10.4) H 02/20/20 12:43 Neut % (Auto) 52.0 % (40-70) 02/20/20 12:43 Lymph % (Auto) 34.7 % (20.5-51.5) 02/20/20 12:43 [place] % (Auto) 8.8 % (1.7-9.3) 02/20/20 12:43 Eos % (Auto) 3.4 % (0-4) 02/20/20 12:43 Baso % (Auto) 1.1 % (0.0-2.0) 02/20/20 12:43 Neut # (Auto) 4.0 K/uL (1.8-7.7) 02/20/20 12:43 Lymph # (Auto) 2.7 K/uL (1.0-5.5) 02/20/20 12:43 [place] # (Auto) 0.7 K/uL (0.0-1.0) 02/20/20 12:43 Eos # (Auto) 0.3 K/uL (0.0-0.4) 02/20/20 12:43 Baso # (Auto) 0.1 K/uL (0.0-0.2) 02/20/20 12:43 Sodium 139 mmol/L (136-145) 02/25/20 09:25 Potassium 4.0 mmol/L (3.5-5.1) 02/25/20 09:25 Chloride 107 mmol/L (98-107) 02/25/20 09:25 Carbon Dioxide 30 mmol/L (23-29) H 02/25/20 09:25 Anion Gap 6 (5-15) 02/25/20 09:25 BUN 18 mg/dL (8-21) 02/25/20 09:25 Creatinine 1.03 mg/dL (0.70-1.30) 02/25/20 09:25 Glucose 95 mg/dL (70-99) 02/25/20 09:25 POC Glucose 115 MG/DL (70 - 105) H 02/19/20 20:24 Hemoglobin A1c 5.1 % (4.8-5.6) 02/20/20 12:49 Calcium 9.2 mg/dL (8.4-10.2) 02/25/20 09:25 Total Bilirubin 0.2 mg/dL (0.0-1.0) 02/25/20 09:25 AST 26 U/L (10-37) 02/25/20 09:25 ALT 46 U/L (12-78) 02/25/20 09:25 Alkaline Phosphatase 100 U/L (46-116) 02/25/20 09:25 Total Protein 6.0 g/dL (6.4-8.3) L 02/25/20 09:25 Albumin 3.1 g/dL (3.4-5.0) L 02/25/20 09:25 Triglycerides 160 mg/dL (30-150) H 02/20/20 12:43 Cholesterol 184 mg/dL (<200) 02/20/20 12:43 LDL Cholesterol 134 mg/dL (0-129) H 02/20/20 12:43 HDL Cholesterol 37 mg/dL (>45) L 02/20/20 12:43 Coronavirus (PCR) NOT DETECTED (NOT DETECTD) 02/20/20 05:00 - Physical Exam Vitals and I&O: Vital Signs Temp 98 F 03/01/20 05:21 Pulse 68 03/01/20 05:21 Resp 20 03/01/20 07:57 BP 126/72 03/01/20 05:21 Pulse Ox 98 03/01/20 05:21 Intake & Output 02/29/20 03/01/20 03/01/20 18:59 06:59 18:59 Intake Total 1400 960 Balance 1400 960 Intake: Oral 1400 960 Other: # Voids 4 1 # Bowel Movements 1 Active Medications: Current Medications Acetaminophen (Tylenol) 650 mg PO Q4H PRN PRN Reason: Temperature Above 100 Stop: 04/19/20 21:26 Al Hydrox/Mg Hydrox/Simethicone (Maalox) 30 ml PO Q4HR PRN PRN Reason: GI DISTRESS Stop: 04/19/20 21:26 Calamine/Phenol (Calmoseptine) 1 appl TP QID PRN PRN Reason: Skin Irritation Stop: 04/26/20 18:47 Thomson Oil/Haitian Balsam/Trypsin (Venelex) 1 appl TP DAILY KOKI Stop: 04/27/20 08:59 Last Admin: 03/01/20 08:45 Dose: 1 appl Chlorpromazine (Thorazine) 100 mg PO BID KOKI; Protocol Stop: 04/26/20 08:59 Last Admin: 03/01/20 08:45 Dose: 100 mg Diphenhydramine HCl (Benadryl) 25 mg PO QID PRN PRN Reason: Itching Stop: 04/20/20 08:49 Ibuprofen (Motrin) 400 mg PO Q4H PRN PRN Reason: Pain (Mild 1-3) Stop: 04/19/20 21:26 Lorazepam (Ativan) 0.5 mg PO Q4HR PRN; Protocol PRN Reason: Agitation Stop: 03/20/20 21:26 Multivitamins/Vitamin C (Theragran) 1 tab PO DAILY KOKI Stop: 04/20/20 08:59 Last Admin: 03/01/20 08:45 Dose: 1 tab Zolpidem Tartrate (Ambien) 5 mg PO HS PRN PRN Reason: Insomnia Stop: 04/19/20 21:26 Last Admin: 02/26/20 22:24 Dose: 5 mg General: weak HEENT: NC/AT, PERRLA Neck: Supple Lungs: CTAB Cardiovascular: RRR, Normal S1, Normal S2 Abdomen: soft, non-tender Extremities: clear Neurological: no change Internal Medicine Assmt/Plan - Assessment Assessment: 1. HTN 2. Schizophrenia - Plan Plan: continue supportive care d/w r.n. reviewed medical records Nutritional Asmnt/Malnutr-PDOC - Dietary Evaluation Malnutrition Findings (Please click <Entered> for more info): Nutritional Asmnt/Malnutrition Start: 02/25/20 16: 03 Text: Status: Active Freq: Protocol: Document 02/25/20 16:03 ETHAN (Rec: 02/25/20 16:09 ETHAN [email or web address] [id number]) Nutritional Asmnt/Malnutrition Patient General Information Nutritional Screening Low Risk Diagnosis Danger to Self, Grave Disability Pertinent Medical Hx/Surgical Hx Schizophrenia, HTN Subjective Information Pt is a 54-year-old male admitted on 02/18 d/t grandiose , tangential thinking, gravely disabled and danger to others and self. Pt is eating an estimated 100% of meals since admit date (x5 days) Per Meal/ Nutrition Activity Record. Dietary is currently providing an estimated 2400 kcals and 120 gm Pro to meet 100% kcal and 100+% Pro needs. Pt has buttocks skin breakdown, open wound 1 cm. Providing Enzo BID to support skin integrity. Visited pt, stated food has been fine, he just likes to eat a lot. Anthropometrics HT: 61 WT: 238 LB (108.18 kg) ABW: 198 LB (89.77 kg) BMI: 31.40 (Obese, class I) GI/ Skin Integrity GI: WNL, Soft, Non-tender, Round BM: 02/23 x2 I/O: 1880/Not Noted Skin: Rt Buttocks Decubitus with pink, skin breakdown Minesh: 19 Diet Order: Regular Estimated Energy Needs: (Obese , ABW, wound) 1050-8859 kcals (25-28 kcals/ kg) 90-108g Pro (1.0-1.2g/kg) 1118-5759 ml (25-28 ml/kg) Current Diet Order/ Nutrition Support Regular Patient / S.O Can Pertinent Medications Maalox (PRN), Theragran Pertinent Labs 02/24: Total Pro 6.0, Albumin 3 .1 02/19: Triglycerides 160, LDL 134, HDL 37 02/18: POC Glucose 115 Nutritional Hx/Data Height 1.85 m Height (Calculated Centimeters) 185.4 Current Weight (lbs) 107.955 kg Weight (Calculated Kilograms) 108.0 Weight (Calculated Grams) 441109.0 [place] Body Weight 184 LB (83.64 kg) % [place] Body Weight 129 Body Mass Index (BMI) 31.4 Weight Status Obese GI Symptoms Last BM 02/23 x2 Skin Integrity/Comment: Skin: Rt Buttocks Decubitus with pink, skin breakdown Minesh: 19 Pt has buttocks skin breakdown , open wound 1 cm. Providing Enzo BID to support skin integrity. Visited pt, stated food has been fine, he just likes to eat a lot. Current %PO Good (75-100%) Estimated Nutritional Goals BEE in Kcals: Adj wt of IBW Calories/Kcals/Kg 25-28 Kcals Calculated 2410-5290 Protein: Adj wt of IBW Protein g/k.0-1.2 Protein Calculated 90-108 Fluid: ml 3894-5227 ml (25-28 ml/kg) Nutritional Problem 1. Problem Problem Increased mineral/vitamin needs Etiology related to wound healing Signs/Symptoms: aeb buttocks skin breakdown, open wound 1 cm. Malnutrition Related to Morbid Obesity Malnutrition related to morbid obesity No Intervention/Recommendation Comments 1.Continue Regular diet as tolerated. 2.Add Enzo BID (completed). Expected Outcomes/Goals Expected Outcomes/Goals 1.PO intake to continue to meet >75% of estimated nutritional needs. 2.Monitor PO intake, wt, nutrition related lab, and skin integrity to trend WNL. 3.F/U as low risk in 7-10 days , 03/03-03/06.
--- NOTE | 2020-03-02 09:34 | Progress Notes ---
DATE: 03/01/2020 PSYCHOLOGY PROGRESS NOTE SUBJECTIVE: The patient is seen and is interviewed. The patient's overall attitude continues to be suspicious and somewhat easily irritated. Staff reports the patient's impulse control continues to be limited. OBJECTIVE: Mood is irritable. Affect is constricted. Thought process includes suspiciousness. The patient denied any thoughts of self-harm or harm to others. The patient has been compliant with his medication. The patient continues to need constant redirection. ASSESSMENT: The patient's paranoid ideation persists. PLAN: We provided de-escalation and limit setting. We provided remotivation for the patient to become compliant and stay compliant with all aspects of his care and treatment. We provided reality testing, differentiation and integration. We encouraged the patient to verbally contract for safety. We encouraged the patient to verbalize his concerns versus acting out. We provided phase of life issues. We encouraged the patient to accept placement versus returning to being homeless. The corrections caseworker reports he accepted to be placed at [facility]. We encouraged the patient to continue to work with both a psychiatrist and psychologist at his placement. No followup is indicated at this time, as the patient is most likely discharging today according to the staff. Thank you, Dr. Khan for this consult and the opportunity to participate with you in this patient's care. JOB# [id number] ONDINA
== END 2020-03-01 15:15 | DRG 885 ==
LOC: GERO 18:59
PROVIDERS: ADMIT Psychiatry & Neurology Psychiatry; ATTEND Psychiatry & Neurology Psychiatry
DX: F20.0 Paranoid schizophrenia (principal); I10 Essential (primary) hypertension; Z20.828 Contact with and (suspected) exposure to other viral communicable diseases
CPT/HCPCS: 36415-UA; 80053-TC; 80061-TC; 82948-90; 83036-90; 85025-TC; G0410; J7051; Q0161; U0003-CS; Z7610